=== PATIENT | male | born 1990 | race African-American/Black ===

== ENCOUNTER 2017-04-07 00:14 | Emergency (ER) | payer OTHER ==
[~2017-04-07] VITALS: Ht 182.9 cm; Wt 72.6 kg
[~2017-04-07 00:14] MED LIST: CYCLOBENZAPRINE10 MG ORAL; IBUPROFEN600 MG ORAL
[2017-04-07 00:20] VITALS: BP 111/77
[2017-04-07] MEDS ORDERED: Pantoprazole Inj IVP ONE (01:00)
[2017-04-07 01:32] LABS: BASOPHILS % (AUTO) 1.3 % (0.0-2.0); EOSINOPHILS % (AUTO) 1.1 % (0.0-3.0); HEMATOCRIT 44.5 % (42.0-52.0); HEMOGLOBIN 14.2 G/DL (14.2-18.0); LYMPHOCYTES % (AUTO) 27.3 % (20.0-45.0); MEAN CORPUSCULAR VOLUME 90 FL (80-99); MONOCYTES % (AUTO) 9.3 % (1.0-10.0); NEUTROPHILS % (AUTO) 61.1 % (45.0-75.0); PLATELET COUNT 240 K/UL (150-450); RED BLOOD COUNT 4.94 M/UL (4.70-6.10); RED CELL DISTRIBUTION WIDTH 12.2 % (11.6-14.8); WHITE BLOOD COUNT 8.3 K/UL (4.8-10.8)
[2017-04-07 01:39] LABS: ANION GAP 6 mmol/L (5-15); BLOOD UREA NITROGEN 17 mg/dL (7-18); CARBON DIOXIDE 31 MMOL/L (21-32); CHLORIDE 100 MMOL/L (98-107); CREATININE 1.2 MG/DL (0.55-1.30); POTASSIUM 3.9 MMOL/L (3.5-5.1); SODIUM 137 MMOL/L (136-145)
[2017-04-07 01:42] LABS: ALANINE AMINOTRANSFERASE < 6 U/L (12-78); ALBUMIN 4.2 G/DL (3.4-5.0); ALBUMIN/GLOBULIN RATIO 1.2 (1.0-2.7); ALKALINE PHOSPHATASE 58 U/L (46-116); ASPARTATE AMINO TRANSFERASE 21 U/L (15-37); BILIRUBIN,TOTAL 0.6 MG/DL (0.2-1.0)
[2017-04-07] MEDS ORDERED: PRILOSEC OTC20 MG ORAL (01:56)
--- NOTE | 2017-04-07 01:57 | Emergency Room Report ---
History of Present Illness General Chief Complaint: Vomiting Source: Patient Present Illness HPI Is a 27-year-old male with no past medical history. He presents with chief complaint of "stomach issue. "2 weeks ago he had vomiting. That resolved. Today he had epigastric pain with vomiting once. He noticed clots of blood in it. Denies any fever chills. No diarrhea. Pain is better now. Denies any other complaint. Smoke 2 cigarettes a day. Now ibuprofen use. No aspirin use. Allergies: Coded Allergies: SULFA (SULFONAMIDE ANTIBIOTICS) (Unverified Allergy, Unknown, 10/28/14) Uncoded Allergies: shellfish (Allergy, Unknown, 10/28/14) Patient History Past Medical History: none, see triage record, old chart reviewed Past Surgical History: none Pertinent Family History: none Social History: Denies: smoking Immunizations: other Reviewed Nursing Documentation: PMH: Agreed, PSxH: Agreed Nursing Documentation-PM Past Medical History: No Stated History Review of Systems Eye: Denies: eye pain, blurred vision ENT: Denies: ear pain, nose congestion, throat swelling Respiratory: Denies: cough, shortness of breath Cardiovascular: Denies: chest pain, palpitations Gastrointestinal: Reports: abdominal pain, vomiting, Denies: diarrhea, nausea Musculoskeletal: Denies: back pain, joint pain Skin: Denies: rash Neurological: Denies: headache, numbness Endocrine: Denies: increased thirst, increased urine Hematologic/Lymphatic: Denies: easy bruising All Other Systems: negative except mentioned in HPI Physical Exam Vital Signs Date Time Temp Pulse Resp B/P (MAP) Pulse Ox O2 Delivery O2 Flow Rate FiO2 04/07/17 00:17 97.9 78 12 111/77 97 Room Air vitals normal Sp02 EP Interpretation: reviewed, normal General Appearance: well appearing, no apparent distress, alert Head: normocephalic, atraumatic Eyes: bilateral eye PERRL, bilateral eye EOMI ENT: hearing grossly normal, normal pharynx Neck: full range of motion, supple, no meningismus Respiratory: chest non-tender, lungs clear, normal breath sounds Cardiovascular #1: regular rate, rhythm, no murmur Gastrointestinal: normal bowel sounds, non tender, no mass, no organomegaly, no bruit, non-distended Musculoskeletal: back normal, gait/station normal, normal range of motion Psychiatric: mood/affect normal Skin: warm/dry Medical Decision Making Diagnostic Impression: Primary Impression: Vomiting Qualified Codes: R11.2 - Nausea with vomiting, unspecified Additional Impression: Gastritis Qualified Codes: K29.01 - Acute gastritis with bleeding ER Course Patient with vomiting specks of blood. No active bleeding now. No evidence of perforation. We'll discharge home. Lab Results Impression last normal Chest X-Ray Diagnostic Results Chest X-Ray Diagnostic Results : Chest X-Ray Ordered: Yes # of Views/Limited/Complete: 1 View Indication: Chest Pain EP Interpretation: Yes Interpretation: no consolidation, no effusion, no pneumothorax, no acute cardiopulmonary disease Impression: No acute disease Electronically Signed by: Yrn Abdul MD Last Vital Signs Date Time Temp Pulse Resp B/P (MAP) Pulse Ox O2 Delivery O2 Flow Rate FiO2 04/07/17 00:20 97.9 78 12 111/77 97 Room Air Status: improved Disposition: HOME, SELF-CARE Condition: Stable Scripts Omeprazole Magnesium (PRILOSEC OTC) 20 Mg Tablet. 20 MG ORAL DAILY, #30 TAB Prov: YRN ABDUL M.D. 04/07/17 Additional Instructions: followup your DrSandra in 7 days. Recommend refer to see GI DrSandra is not better. You may need an endoscopy. Return if worse. YRN ABDUL M.D. Apr 07, 2017 01:57
[2017-04-07 02:07] VITALS: BP_SYST 111; BP_SYST 122; BP_DIAS 55; BP_DIAS 77
--- NOTE | 2017-04-07 09:24 | Diagnostic Imaging Report ---
Indication: Chest pain Technique: One view of the chest Comparison: 10/28/2014 Findings: Lungs and pleural spaces are clear. Heart size is normal. No significant interim change Impression: No acute process
== END 2017-04-07 02:15 | disposition home or self-care (01) ==
LOC: EMR 00:32
DX: K29.70 Gastritis, unspecified, without bleeding (principal); Z88.2 Allergy status to sulfonamides; Z91.013 Allergy to seafood
CPT/HCPCS: 36415; 71045; 80053; 83690; 85025; 96374; 96375; 99284; C9113; J2405

== ENCOUNTER 2018-07-25 09:55 | Emergency (ER) | payer OTHER ==
[~2018-07-25] VITALS: Ht 182.9 cm; Wt 72.6 kg
[~2018-07-25 09:55] MED LIST changes: +PRILOSEC OTC20 MG ORAL
[2018-07-25] MEDS ORDERED: NKM (10:09)
[2018-07-25 10:13] VITALS: BP 120/79
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
--- NOTE | 2018-07-25 10:40 | NUR ---
ED Nurse Note: [employer] called spoke with [employer] operator #[id number] [facility]. pt provided with [employer] # if he would like to file a report later. pt refused to file a report.
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
[2018-07-25] MEDS ORDERED: Acetaminophen 500mg (ES) tab ORAL ONE (10:45)
[2018-07-25] MEDS ORDERED: Tetanus/Diptheria/Pertussis IM ONE (10:45)
--- NOTE | 2018-07-25 11:16 | NUR ---
ED Nurse Note: pt in imaging
--- NOTE | 2018-07-25 11:29 | NUR ---
ED Nurse Note: pt still in x-ray
[2018-07-25] MEDS ORDERED: NORCO 5-325 TA1 EACH ORAL (11:59)
[2018-07-25] MEDS ORDERED: IBUPROFEN600 MG ORAL (11:59)
[2018-07-25 12:19] VITALS: BP 118/75
--- NOTE | 2018-07-25 12:21 | NUR ---
ED Nurse Note: pt refused ceasar tape and post - op shoe and crutches pt given aci and script and work note ambulated out of er with strong and steady gait.
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
--- NOTE | 2018-07-25 13:54 | Diagnostic Imaging Report ---
Indication: Foot pain Comparison: None Findings: 3 views of the left foot were obtained. There is acute nondisplaced fracture involving the first proximal phalange. IMPRESSION: Acute fracture of the first proximal phalange
== END 2018-07-25 12:22 | disposition home or self-care (01) ==
LOC: EMR 11:41
DX: S92.415A Nondisplaced fracture of proximal phalanx of left great toe, initial encounter for closed fracture (principal); R07.9 Chest pain, unspecified; S60.511A Abrasion of right hand, initial encounter; V03.19XA Pedestrian with other conveyance injured in collision with car, pick-up truck or van in traffic accident, initial encounter; Y92.9 Unspecified place or not applicable; Z88.2 Allergy status to sulfonamides; Z91.013 Allergy to seafood; Z23 Encounter for immunization
CPT/HCPCS: 90471; 90715; 99284

== ENCOUNTER 2018-11-05 07:59 | Emergency (ER) | payer OTHER ==
[~2018-11-05] VITALS: Ht 182.9 cm; Wt 74.8 kg
[~2018-11-05 07:59] MED LIST changes: +NKM; +NORCO 5-325 TA1 EACH ORAL
[2018-11-05 08:11] VITALS: BP 121/79
--- NOTE | 2018-11-05 08:11 | NUR ---
ED Nurse Note: Patient walked in to ER due to intermittent lower abdominal pain x couple weeks ago with nausea, vomiting and diarrhea. Has hx of GERD. Alert and oriented x4, verbally responsive. Breathing even and unlabored.
[2018-11-05] MEDS ORDERED: DICYCLOMINE HCL10 MG ORAL (08:45)
[2018-11-05] MEDS ORDERED: RANITIDINE HCL150 MG ORAL (08:45)
[2018-11-05] MEDS ORDERED: ONDANSETRON ODT4 MG BC (08:45)
[2018-11-05 08:50] VITALS: BP 121/79
--- NOTE | 2018-11-05 08:50 | NUR ---
ED Nurse Note: Pt cleared by ERMD for discharge. DC instructions/prescription was given and explained to pt and verbalized understanding of teachings. All medical deviecs such as ID band removed. Pt is AAO x4, ambulatory and left with all personal belongings.
--- NOTE | 2018-11-05 09:41 | Emergency Room Report ---
History of Present Illness General Chief Complaint: Abdominal Pain Source: Patient Present Illness HPI 28-year-old male presents ED for evaluation. Complaining of abdominal pain with nausea and diarrhea. States he has been having intermittent watery stools for the last 2 weeks. Noticed blood in stool today so he got worried. Describes cramping pain, 5 out of 10, nonradiating. Notes nausea. Denies vomiting. Denies fevers or chills. Denies recent travel or recent antibiotic use. States he has been told he has gastritis in the past and was prescribed omeprazole. No other aggravating relieving factors. Denies any other associated symptoms Allergies: Coded Allergies: SULFA (SULFONAMIDE ANTIBIOTICS) (Unverified Allergy, Unknown, 11/05/18) Uncoded Allergies: shellfish (Allergy, Unknown, 10/28/14) Patient History Past Medical History: none Past Surgical History: none Pertinent Family History: none Social History: Denies: smoking, alcohol use, drug use Immunizations: UTD Reviewed Nursing Documentation: PMH: Agreed; PSxH: Agreed Nursing Documentation-PMH Past Medical History: No History, Except For Review of Systems All Other Systems: negative except mentioned in HPI Physical Exam Vital Signs Date Time Temp Pulse Resp B/P (MAP) Pulse Ox O2 Delivery O2 Flow Rate FiO2 11/05/18 08:08 99.0 68 16 121/79 (93) 97 Room Air Sp02 EP Interpretation: reviewed, normal General Appearance: no apparent distress, alert, GCS 15, non-toxic Head: normocephalic, atraumatic Eyes: bilateral eye normal inspection, bilateral eye PERRL ENT: hearing grossly normal, normal pharynx, no angioedema, normal voice Neck: full range of motion, supple/symm/no masses Respiratory: chest non-tender, lungs clear, normal breath sounds, speaking full sentences Cardiovascular #1: regular rate, rhythm, no edema Cardiovascular #2: 2+ carotid (R), 2+ carotid (L), 2+ radial (R), 2+ radial (L) , 2+ dorsalis pedis (R), 2+ dorsalis pedis (L) Gastrointestinal: normal bowel sounds, non tender, soft, non-distended, no guarding, no rebound Rectal: deferred Genitourinary: normal inspection, no CVA tenderness Musculoskeletal: back normal, gait/station normal, normal range of motion, non- tender Neurologic: alert, oriented x3, responsive, motor strength/tone normal, sensory intact, speech normal Psychiatric: judgement/insight normal, memory normal, mood/affect normal, no suicidal/homicidal ideation Reflexes: 3+ bicep (R), 3+ bicep (L), 3+ tricep (R), 3+ tricep (L), 3+ knee (R) , 3+ knee (L) Lymphatic: no adenopathy Medical Decision Making Diagnostic Impression: Primary Impression: Gastroenteritis ER Course Hospital Course 28-year-old M presents to ED with cramping abdominal pain with nausea, diarrhea differential diagnosis: gastritis, SBO, cholecystits, gastroenteritis Clinical course Patient placed on stretcher. Initial history physical exam reveals male in no acute distress. Abdomen soft with no guarding or rebound. Good capillary refill. Mucous membranes moist. Vitals stable. I offered to place IV and check labs but patient declined at this time. Patient states that he would prefer to have proper outpatient follow -up as he has been having these problems on and off for several months now. Does not have a PMD at this time. Will provide referrals I feel this is a highly complex case requiring extensive working including EKG/ Rhythm strip, Xray/CT/US, Blood/urine lab work, repeat exams while in ED, and administration of strong opiates/narcotics for pain control, admission to hospital or close patient follow up. Diagnosis - gastroenteritis Stable and discharged to home with prescriptions for Zantac, zofran, bentyl. Followup with PMD. Return to ED if symptoms recur or worsen Last Vital Signs Date Time Temp Pulse Resp B/P (MAP) Pulse Ox O2 Delivery O2 Flow Rate FiO2 11/05/18 08:50 99.0 16 121/79 97 Room Air 11/05/18 08:11 68 Status: improved Disposition: HOME, SELF-CARE Condition: Stable Scripts Ranitidine Hcl* (ZANTAC*) 150 Mg Tablet 150 MG ORAL TWICE A DAY, #30 TAB Prov: Hemant Gama MD 11/05/18 Ondansetron Odt* (ZOFRAN ODT*) 4 Mg Tab.rapdis 4 MG BC EVERY 6 HOURS PRN for Nausea & Vomiting, #20 TAB 0 Refills Prov: Hemant Gama MD 11/05/18 Dicyclomine Hcl* (DICYCLOMINE HCL*) 10 Mg Capsule 10 MG ORAL QID, #20 CAP Prov: Hemant Gama MD 11/05/18 Referrals: NON PHYSICIAN (PCP) [facility] Shasha Bailey [facility]. [facility] Patient Instructions: Bloody Diarrhea Hemant Gama MD Nov 05, 2018 09:41
== END 2018-11-05 08:50 | disposition home or self-care (01) ==
LOC: EMR 08:32
DX: K52.9 Noninfective gastroenteritis and colitis, unspecified (principal); Z88.2 Allergy status to sulfonamides; Z91.013 Allergy to seafood
CPT/HCPCS: 99282

== ENCOUNTER 2019-05-13 17:13 | Emergency (ER) | payer MEDICAID, OTHER ==
[~2019-05-13] VITALS: Ht 182.9 cm; Wt 79.4 kg
[~2019-05-13 17:13] MED LIST changes: +DICYCLOMINE HCL10 MG ORAL; +ONDANSETRON ODT4 MG BC; +RANITIDINE HCL150 MG ORAL
[2019-05-13 17:15] VITALS: BP 128/74
--- NOTE | 2019-05-13 17:25 | NUR ---
ED Nurse Note: Pt from home walked in due to SOB and coughing with phlegm. Pt is positive for influenza B. AAO x4, ambulatory.
--- NOTE | 2019-05-13 18:00 | Emergency Room Report ---
History of Present Illness General Chief Complaint: Upper Respiratory Illness Source: Patient Present Illness HPI 29-year-old male with no symptom past medical history here complaining of 1 week of cough and congestion, denies any recent travel, or coming contact with people who recently traveled. Denies fever and chills, chest pain, shortness of breath, palpitation headache and dizziness. Has not taken medication for symptom relief. Reports that 1 week ago he was positive for influenza B. Denies tobacco smoke, drug use, alcohol intake. Sitting comfortably with stable vital signs. Allergies: Coded Allergies: SULFA (SULFONAMIDE ANTIBIOTICS) (Unverified Allergy, Unknown, 11/05/18) Uncoded Allergies: shellfish (Allergy, Unknown, 10/28/14) Patient History Past Medical History: see triage record Past Surgical History: none Pertinent Family History: none Immunizations: UTD Reviewed Nursing Documentation: PMH: Agreed; PSxH: Agreed Nursing Documentation-PMH Past Medical History: No Stated History Review of Systems All Other Systems: negative except mentioned in HPI Physical Exam Vital Signs Date Time Temp Pulse Resp B/P (MAP) Pulse Ox O2 Delivery O2 Flow Rate FiO2 05/13/19 17:15 98.2 78 16 128/74 95 Room Air Sp02 EP Interpretation: reviewed, normal General Appearance: no apparent distress, alert, GCS 15, non-toxic Head: normocephalic, atraumatic Eyes: bilateral eye normal inspection, bilateral eye PERRL ENT: hearing grossly normal, normal pharynx, no angioedema, normal voice Neck: full range of motion, supple, no meningismus, supple/symm/no masses Respiratory: chest non-tender, lungs clear, normal breath sounds, no rhonchi, no respiratory distress, no retraction, no wheezing, speaking full sentences Cardiovascular #1: regular rate, rhythm, no edema, no murmur Gastrointestinal: normal bowel sounds, non tender, soft, non-distended, no guarding, no rebound Genitourinary: no CVA tenderness Musculoskeletal: back normal Neurologic: alert, motor strength/tone normal, oriented x3, sensory intact, responsive, speech normal Psychiatric: judgement/insight normal, memory normal, mood/affect normal, no suicidal/homicidal ideation Skin: no rash Lymphatic: no adenopathy Medical Decision Making PA Attestation All my diagnosis and treatment plans were reviewed ad discussed with my supervising physician Dr. Raines Diagnostic Impression: Primary Impression: Pneumonitis ER Course 29-year-old male with no symptom past medical history here complaining of 1 week of cough and congestion, denies any recent travel, or coming contact with people who recently traveled. Denies fever and chills, chest pain, shortness of breath, palpitation headache and dizziness. Has not taken medication for symptom relief. Reports that 1 week ago he was positive for influenza B. Denies tobacco smoke, drug use, alcohol intake. Sitting comfortably with stable vital signs. Ddx considered but are not limited to: bronchitis, PNA, URI viral, bacterial bronchitis, pneumonitis Vital signs: are WNL, pt. is afebrile H&PE are most consistent with: Pneumonitis ORDERS: Chest x-ray, azithromycin, guaifenesin, albuterol ED INTERVENTIONS: None required at this time. DISCHARGE: At this time pt. is stable for d/c to home. Will provide printed patient care instructions, and any necessary prescriptions. Care plan and follow up instructions have been discussed with the patient prior to discharge. Patient reports that he still has Phenergan at home and will take. Take medication as directed, follow-up with primary care provider, increase oral hydration, if worsening symptoms return to the emergency room Chest X-Ray Diagnostic Results Chest X-Ray Diagnostic Results : Chest X-Ray Ordered: Yes # of Views/Limited/Complete: 1 View Indication: Other - cough EP Interpretation: Yes PA Xray: Interpretation reviewed, by supervising MD, and agrees with findings. Interpretation: no consolidation, no effusion, no pneumothorax Impression: No acute disease Electronically Signed by: Waqas Turner PA-C Last Vital Signs Date Time Temp Pulse Resp B/P (MAP) Pulse Ox O2 Delivery O2 Flow Rate FiO2 05/13/19 17:25 87 15 Room Air 05/13/19 17:15 98.2 128/74 (92) 95 Disposition: HOME, SELF-CARE Condition: Stable Scripts Albuterol Sulfate (VENTOLIN HFA) 18 Gm Hfa.aer.ad 2 PUFFS INH EVERY 6 HOURS, #18 GM 0 Refills Prov: Waqas Chambers 05/13/19 Guaifenesin* (GUAIFENESIN*) 100 Mg/5 Ml Liquid 15 ML ORAL Q6H, #120 ML 0 Refills Prov: Waqas Chambers 05/13/19 Azithromycin* (ZITHROMAX*) 250 Mg Tablet 250 MG ORAL DAILY, #6 TAB 0 Refills Take two tables once daily for 1 day, then one tablet once daily for 4 days. Prov: Waqas Chambers 05/13/19 Patient Instructions: Pneumonitis Additional Instructions: Take medication as directed, follow-up with your primary care provider, increase oral hydration, if worsening symptoms return to the Emergency Room Waqas Chambers May 13, 2019 18:00
[2019-05-13] MEDS ORDERED: GUAIFENESI100 MG/5 M ORAL (18:01)
[2019-05-13] MEDS ORDERED: ZITHROMAX250 MG ORAL (18:01)
[2019-05-13] MEDS ORDERED: VENTOLIN HFA18 GM INH (18:01)
[2019-05-13 18:16] VITALS: BP 135/78
--- NOTE | 2019-05-13 18:16 | NUR ---
ER DISCHARGE NOTE: Patient is cleared to be discharged per ERMD, pt is aox4, on room air, with stable vital signs. pt was given dc and prescription instructions, pt was able to verbalize understanding, pt id banremoved without complications. pt is able to ambulate with steady gait. pt took all belongings.
--- NOTE | 2019-05-14 12:28 | Diagnostic Imaging Report ---
Indication: Dyspnea Comparison: 04/07/2017 A single view chest radiograph was obtained. Findings: Cardiomediastinal appearance is within normal limits for age. The lungs are clear. Pulmonary vascularity is appropriate. The diaphragmatic contour is smooth and costophrenic angles are sharp. No pleural effusions are identified. The bones are unremarkable. Impression: No acute findings
== END 2019-05-13 18:13 | disposition home or self-care (01) ==
LOC: EMR 17:45
DX: J18.9 Pneumonia, unspecified organism (principal); Z88.2 Allergy status to sulfonamides; Z91.013 Allergy to seafood
CPT/HCPCS: 71045; Z7502; 99283